=== PATIENT | male | born 1970 | race Two or more races ===

== ENCOUNTER 2024-10-14 16:55 | Emergency (ER) | payer MEDICAID, SELFPAY ==
[2024-10-14] VITALS (7 sets, daily range): BP systolic 123–129; BP diastolic 89–104; PULSE 93–120; RESP 19–22; TEMP 36.6–37; O2SAT 94–100; BMI 36.9
--- NOTE | 2024-10-14 17:20 | XR_ITS ---
Examination: AP chest single view Technique one AP portable upright chest single view Exam date and time: October 14, 2024 1755 hours INDICATIONS: Onset SOB today. FINDINGS: Mild heart failure Mild to moderate enlargement left ventricle Prominent vascular congestion with early septal edema at the lung bases Cardiac leads satisfactory position compared with February 16, 2021 IMPRESSION: Mild heart failure
--- NOTE | 2024-10-14 17:21 | PD.EDRME ---
Rapid Medical Screening Exam RME Arrival date/time: 10/14/24 16:55 Time Seen by Provider: 10/14/24 17:19 Vital signs: Vital Signs Temperature 98.6 F 10/14/24 17:00 Pulse Rate 113 H 10/14/24 17:00 Respiratory Rate 20 10/14/24 17:00 Blood Pressure 128/92 H 10/14/24 17:00 Pulse Oximetry (%) 94 L 10/14/24 17:00 Oxygen Delivery Method Room Air 10/14/24 17:00 RME Narrative: 54-year-old male with a history of meth induced dilated cardiomyopathy who presents with shortness of breath after running out of his Lasix for the last 3 days. He takes 40 mg twice a day for total of 80 mg in a 24-hour period. He denies chest pain. He denies cough fevers or sick contacts. On exam patient has a moderate respiratory distress, sitting upright. Focused encounter and examination was done to initiate the appropriate workup and treatment. Patient will be seen by the additional provider for more detailed and further management.
--- NOTE | 2024-10-14 17:37 | PD.EDADULT ---
ED General RME/HPI General Chief complaint: Shortness of Breath/Dyspnea Stated complaint: SOB Time Seen by Provider: 10/14/24 17:19 Arrival date/time: 10/14/24 16:55 CC: Shortness of breath onset after running out of his Lasix 3 to 4 days ago repeat the patient takes 40 mg twice a day. Patient denies any chest pain, has had intermittent cough but denies any fever chills nausea vomiting. 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 Affirms that he takes all of his medications as prescribed. Denies methamphetamine or illicit drug use. RME / HPI RME / HPI narrative: 54-year-old male with a history of meth induced dilated cardiomyopathy who presents with shortness of breath after running out of his Lasix for the last 3 days. He takes 40 mg twice a day for total of 80 mg in a 24-hour period. He denies chest pain. He denies cough fevers or sick contacts. On exam patient has a moderate respiratory distress, sitting upright. Focused encounter and examination was done to initiate the appropriate workup and treatment. Patient will be seen by the additional provider for more detailed and further management. Related Data Home Medications ?Medication ?Instructions ?Recorded ?Confirmed alogliptin 25 mg tablet 25 mg PO QDAY 02/03/20 02/14/21 atorvastatin 20 mg tablet 20 mg PO QDAY 02/03/20 02/14/21 metformin 1,000 mg tablet 1,000 mg PO BID 02/03/20 02/14/21 spironolactone 25 mg tablet 25 mg PO QDAY 08/10/20 02/14/21 hydroxyzine HCl 50 mg tablet 50 mg PO HS PRN Anxiety 10/28/20 02/14/21 apixaban 5 mg tablet (Eliquis) 5 mg PO BID 02/14/21 02/14/21 empagliflozin 25 mg tablet 25 mg PO DAILY 02/14/21 02/14/21 (Jardiance) escitalopram oxalate 10 mg tablet 10 mg PO QDAY 02/14/21 02/14/21 furosemide 40 mg tablet 40 mg PO DAILY 02/14/21 02/14/21 sacubitril 24 mg-valsartan 26 mg 1 tab PO BID 02/14/21 02/14/21 tablet (Entresto) Previous Rx's ?Medication ?Instructions ?Recorded folic acid 1 mg tablet 1 mg PO QDAY #30 tabs 08/12/20 hydrocodone 5 mg-acetaminophen 325 1 tab PO Q6H PRN pain #10 tabs 11/17/22 mg tablet ibuprofen 800 mg tablet 800 mg PO Q6H PRN pain #14 tabs 11/17/22 furosemide 40 mg tablet (Lasix) 40 mg PO BID #30 tabs 10/14/24 Allergies Allergy/AdvReac Type Severity Reaction Status Date / Time No Known Allergies Allergy Verified 10/14/24 17:28 Review of Systems Review of Systems Narrative Review of Systems: GEN: No fever, no chills, no weight loss EYES: No discharge, no visual changes, no pain HEENT: No ear pain, no congestion, no sore throat PULM: + shortness of breath, no cough, no congestion CV: No chest pain, no dyspnea on exertion, no palpitations GI: No nausea, no vomiting, no diarrhea, no pain, no constipation : No frequency, no urgency, no dysuria MUSC/SKEL: No joint pain, no back pain SKIN: No rash PSYCH: No hallucinations, no depression HEME/LYMPH: No easy bleeding or bruising tendencies NEURO: No weakness, no headache Past Medical History Past Medical History NEUROLOGIC: Positive Cerebrovascular Accident CARDIAC: Positive Cardiac Disorders, Hypercholesterolemia, Congestive Heart Failure, Congenital Heart Disease and Hypertension RESPIRATORY: Positive Asthma and Sleep Apnea; Negative Chronic Obstructive Pulmonary Disease (COPD) GASTROINTESTINAL: Positive Obesity; Negative Gastrointestinal Disorders GENITOURINARY: Negative Genitourinary Disorders or Renal Disease MUSCULOSKELETAL: Negative Musculoskeletal Disorders ENDOCRINE: Positive Endocrine Disorders and Diabetes Mellitus Type 2; Negative Diabetes Mellitus Type 1 HEMATOLOGIC: Negative Blood Disorders or Sickle Cell Disease OTHER HISTORY: Negative Autoimmune Disease or Cancer Family History FAMILY HISTORY: Positive Family Cardiac Disorders and Family Surgery; Negative Family Neurologic Problems, Family Psychiatric Problems, Family Respiratory Disorders, Family Gastrointestinal Problems, Family Cancer or Family Anesthesia Reaction Surgical History SURGICAL: Positive Pacemaker Social History SMOKING STATUS: Never smoker SECOND HAND EXPOSURE: No SUBSTANCE USE: methamphetamine ED Exam Narrative Physical exam: [General:not in any acute distress Head normocephalic HEENT: Within acceptable limits Neck is supple nontender Chest equal chest rise nontender to palpation Respiratory: Clear to auscultation no wheezes crackles or rubs CV: Rate rhythm is regular no murmurs rubs or clicks Abdomen is distended secondary to body habitus soft nontender no masses positive bowel sounds all 4 quadrants Back: No CVA tenderness no spinous process tenderness from cervical spine thoracic and lumbar spine Skin: Intact no petechiae rash induration ulceration or crepitus Extremities: Moving all extremity against resistance cap refill less than 2 seconds neurosensory intact. Minimal nonpitting edema both lower extremities Neuro: Awake alert oriented x3 Glascow coma 15 no focal deficits] Course Course Course Narrative: Patient voided approximately 400 mL and feels better . Patient be discharged home with a refill of his Lasix. Quality Measures none Orders Category Date Time Status EKG (ED ONLY) *Do not use* NOW Care 10/14/24 17:20 Completed EKG (ED Only) Stat Exams 10/14/24 17:20 Ordered XR chest 1V Stat Exams 10/14/24 17:20 Completed CBC Stat Lab 10/14/24 17:36 Completed CMP [Comprehensive Metabolic Panel] Stat Lab 10/14/24 17:36 Completed Troponin I Stat Lab 10/14/24 17:36 Completed Furosemide Inj [Lasix Inj] Med 10/14/24 20:03 Discontinued 40 mg IVP X1 ONE Furosemide Inj [Lasix Inj] Med 10/14/24 17:19 Discontinued 80 mg IVP X1 ONE Vital Signs Vital signs: Vital Signs Temperature 98.6 F 10/14/24 17:00 Pulse Rate 113 H 10/14/24 17:00 Respiratory Rate 20 10/14/24 17:00 Blood Pressure 128/92 H 10/14/24 17:00 Pulse Oximetry (%) 94 L 10/14/24 17:00 Oxygen Delivery Method Room Air 10/14/24 17:00 [facility] Patient data External records reviewed:: [facility] previous records Clinical information provided by:: patient Social determinants that could affect healthcare access:: none Patient has the following chronic illnesses:: Congestive heart failure secondary to polysubstance use How is presenting disease/condition affected by chronic disease/condition?: exacerbated by Evaluation data The following diagnostics were reviewed and interpreted by me:: lab results, radiology exam(s) and EKG tracing(s) Lab and/or radiology exams considered but not ordered:: EKG performed at 1906 shows ventricular to 119 PA interval 154 QRS of 121 QTc of 419 sinus tachycardia left axis deviation. Interpretation Summary: Fluid overload after running out of Lasix Medications Medications considered but not ordered:: None Medication administrations:: Medication Administration History Discontinued Medications Furosemide (Furosemide Inj 10 Mg/Ml 4ml Vial) 80 mg IVP X1 ONE Stop: 10/14/24 17:20 Last Admin: 10/14/24 17:38 Dose: 80 mg Documented By: AM Furosemide (Furosemide Inj 10 Mg/Ml 4ml Vial) 40 mg IVP X1 ONE Stop: 10/14/24 20:04 Last Admin: 10/14/24 20:17 Dose: 40 mg Documented By: TC None Consultations Consultation(s) initiated? (list below): No Diagnosis Differential Diagnosis ED Complaint MDM: [facility] [place] CHF Most likely diagnosis given after review of the tests above:: CHF exacerbation secondary to medication noncompliance Admission Indicated Admission indicated?: not indicated Explain why admission is indicated or not indicated:: Stable for outpatient follow-up Admission Request Was there a request for admission?: No Disposition Plan Disposition Plan: Discharge Discharge Attestation Discharge Attestation: The patient and all family members were given an opportunity to ask questions and understood the discharge instructions. Discharge instructions specifically effects, indications for sooner follow up or return to the emergency department, and the expected course of current diagnosis. Patient condition: Stable Medical Decision Making Differential Diagnosis Differential Diagnosis: [facility] [place] CHF Lab Data 10/14/24 17:36 10/14/24 17:36 Labs: Lab Results 10/14/24 Range/Units 17:36 WBC 7.7 (3.8-10.6) Thou/mm3 RBC 5.30 (4.50-5.90) Miln/mm3 Hgb 14.9 (13.5-16.0) g/dL Hct 45.6 (41.0-53.0) % MCV 86 (80-100) fL MCH 28.1 (25.0-35.0) pg MCHC 32.7 (31.0-37.0) g/dl RDW Std Deviation 51.0 H (35.1-43.9) fL Plt Count 191 (140-440) Thou/mm3 Neut % (Auto) 73 (37-80) % Lymph % (Auto) 12 (10-50) % [place] % (Auto) 11 (0-12) % Eos % (Auto) 2 (0-10) % Baso % (Auto) 1 (0-2.5) % Neut # (Auto) 5.6 (1.8-7.7) Thou/mm3 Lymph # (Auto) 0.9 L (1.0-4.8) Thou/mm3 [place] # (Auto) 0.9 H (0.0-0.8) Thou/mm3 Eos # (Auto) 0.2 (0.0-0.5) Thou/mm3 Baso # (Auto) 0.1 (0.0-0.2) Thou/mm3 Immature Gran # (Auto) 0.02 H (0.00-0.00) Thou/mm3 Absolute Nucleated RBC 0.00 (0.00-0.00) Thou/mm3 Immature Gran % 0 (0-0) % Nucleated RBC % 0 (0) /100 WBC Sodium 137 (136-145) mMol/L Potassium 3.9 (3.4-5.1) mMol/L Chloride 99 (98-107) mMol/L Carbon Dioxide 29.8 (20.0-31.0) mMol/L Anion Gap 8 (7-16) BUN 22 (9-23) mg/dL Creatinine 1.3 (0.6-1.3) mg/dL Estim Creat Clear Calc 82.5 (>60) mL/min eGFR > 60 (60 - ) See Note BUN/Creatinine Ratio 17 (12-20) Ratio Glucose 204 H (74-106) mg/dL Calculated Osmolality 283 (275-295) Calcium 9.7 (8.3-10.6) mg/dL Corrected Calcium 9.7 (8.5-10.1) mg/dL Total Bilirubin 2.9 H (0.3-1.2) mg/dL AST 22 (0-34) U/L ALT 18 (10-49) U/L Alkaline Phosphatase 156 H (46-116) U/L Troponin I 0.022 (0.0-0.045) ng/mL Total Protein 8.0 (5.7-8.2) gm/dL Albumin 4.4 (3.5-5.0) gm/dL Globulin 3.6 H (2.3-3.5) gm/dL Albumin/Globulin Ratio 1.2 (1.2-2.2) Discharge Plan Plan Patient Disposition: HOME (Self Care) Patient condition on transfer: Stable Prescriptions/Referrals Prescriptions/Med Rec: New furosemide [Lasix] 40 mg tablet 40 mg PO BID Qty: 30 1RF No Action atorvastatin 20 mg Tablet 20 mg PO QDAY metformin 1,000 mg Tablet 1,000 mg PO BID alogliptin 25 mg Tablet 25 mg PO QDAY hydroxyzine HCl 50 mg Tablet 50 mg PO HS PRN (Reason: Anxiety) spironolactone 25 mg Tablet 25 mg PO QDAY folic acid 1 mg Tablet 1 mg PO QDAY Qty: 30 0RF Eliquis 5 mg Tablet 5 mg PO BID Jardiance 25 mg Tablet 25 mg PO DAILY escitalopram oxalate 10 mg Tablet 10 mg PO QDAY furosemide 40 mg tablet 40 mg PO DAILY Entresto 24-26 mg Tablet 1 tab PO BID ibuprofen 800 mg tablet 800 mg PO Q6H PRN (Reason: pain) Qty: 14 0RF hydrocodone-acetaminophen 5-325 mg tablet 1 tab PO Q6H MDD 4 PRN (Reason: pain) Qty: 10 0RF Referrals: Zeferino Gaytan MD [Primary Care Provider] - In 1 week Problem List Clinical Impression: CHF (congestive heart failure) Patient/Caregiver Discharge Instructions Education Materials: Heart Failure Dc Additional Instructions: Take the medication as prescribed there is worsening of symptoms follow-up with your primary care doctor or return to the emergency room. Print Language: [place] Stand Alone Forms: Esthela Award Info., Patient Portal Info Letter, Work/School Release PA/EXPLOSIVE SPECIALIST Supervising Physician PA/EXPLOSIVE SPECIALIST Supervising Physician: Guillaume German ENP
[2024-10-14] MEDS: FUROSEMIDE INJ 10 MG/ML 4ML VIAL 80 MG IVP (17:38)
[2024-10-14 17:41] LABS: Basophils # (Auto) 0.1 Thou/mm3 (0.0-0.2); Basophils % (Auto) 1 % (0-2.5); Eosinophils # (Auto) 0.2 Thou/mm3 (0.0-0.5); Eosinophils % (Auto) 2 % (0-10); Hematocrit 45.6 % (41.0-53.0); Hemoglobin 14.9 g/dL (13.5-16.0); Immature Granulocytes % (Auto) 0 % (0-0); Immature Granulocytes Auto 0.02 Thou/mm3 (0.00-0.00); Lymphocytes # (Auto) 0.9 Thou/mm3 (1.0-4.8); Lymphocytes % (Auto) 12 % (10-50); Mean Corpuscular HGB Conc 32.7 g/dl (31.0-37.0); Mean Corpuscular Hemoglobin 28.1 pg (25.0-35.0); Mean Corpuscular Volume 86 fL (80-100); Monocytes # (Auto) 0.9 Thou/mm3 (0.0-0.8); Monocytes % (Auto) 11 % (0-12); Neutrophils # (Auto) 5.6 Thou/mm3 (1.8-7.7); Neutrophils % (Auto) 73 % (37-80); Nucleated Red Blood Cell % 0 /100 WBC (0); Platelet Count 191 Thou/mm3 (140-440); White Blood Count 7.7 Thou/mm3 (3.8-10.6)
[2024-10-14 18:00] LABS: Alanine Aminotransferase 18 U/L (10-49); Albumin, Serum 4.4 gm/dL (3.5-5.0); Albumin/Globulin Ratio 1.2 (1.2-2.2); Alkaline Phosphatase 156 U/L (46-116); Anion Gap 8 (7-16); Aspartate Amino Transferase 22 U/L (0-34); BUN/Creatinine Ratio 17 Ratio (12-20); Bilirubin,Total 2.9 mg/dL (0.3-1.2); Blood Urea Nitrogen 22 mg/dL (9-23); Calcium 9.7 mg/dL (8.3-10.6); Calcium (Corrected) 9.7 mg/dL (8.5-10.1); Carbon Dioxide 29.8 mMol/L (20.0-31.0); Chloride 99 mMol/L (98-107); Creatinine (Component) 1.3 mg/dL (0.6-1.3); Estimated Creatinine Clearance 82.5 mL/min (>60); Globulin 3.6 gm/dL (2.3-3.5); Glucose 204 mg/dL (74-106); Osmolality,Calculated 283 (275-295); Potassium 3.9 mMol/L (3.4-5.1); Sodium 137 mMol/L (136-145); Troponin I 0.022 ng/mL (0.0-0.045); eGFR > 60 See Note
[2024-10-14] MEDS: FUROSEMIDE INJ 10 MG/ML 4ML VIAL 40 MG IVP (20:17)
== END 2024-10-14 21:08 | disposition home or self-care (01) ==
PROVIDERS: Emergency Provider Emergency Medicine; PCP Family Medicine
DX: I11.0 Hypertensive heart disease with heart failure (principal); I50.9 Heart failure, unspecified; R00.0 Tachycardia, unspecified; E78.00 Pure hypercholesterolemia, unspecified; Z95.0 Presence of cardiac pacemaker; Z79.01 Long term (current) use of anticoagulants
CPT/HCPCS: 36415; 71045; 80053; 84484; 85025; 93005; 96374; 96376; 99284; J1940

== ENCOUNTER → 2025-03-27 | Outpatient (CLI) | payer MEDICAID, SELFPAY ==
[2025-03-27 12:01] LABS: Collection Type, Urine Clean Catch
[2025-03-27 12:13] LABS: Basophils # (Auto) 0.1 Thou/mm3 (0.0-0.2); Basophils % (Auto) 1 % (0-2.5); Eosinophils # (Auto) 0.2 Thou/mm3 (0.0-0.5); Eosinophils % (Auto) 4 % (0-10); Hematocrit 50.2 % (41.0-53.0); Hemoglobin 16.9 g/dL (13.5-16.0); Immature Granulocytes % (Auto) 0 % (0-0); Immature Granulocytes Auto 0.02 Thou/mm3 (0.00-0.00); Lymphocytes # (Auto) 1.1 Thou/mm3 (1.0-4.8); Lymphocytes % (Auto) 20 % (10-50); Mean Corpuscular HGB Conc 33.7 g/dl (31.0-37.0); Mean Corpuscular Hemoglobin 29.5 pg (25.0-35.0); Mean Corpuscular Volume 88 fL (80-100); Monocytes # (Auto) 0.7 Thou/mm3 (0.0-0.8); Monocytes % (Auto) 12 % (0-12); Neutrophils # (Auto) 3.5 Thou/mm3 (1.8-7.7); Neutrophils % (Auto) 63 % (37-80); Nucleated Red Blood Cell % 0 /100 WBC (0); Platelet Count 314 Thou/mm3 (140-440); RDW Standard Deviation 50.4 fL (35.1-43.9); Red Blood Count 5.73 Miln/mm3 (4.50-5.90); White Blood Count 5.6 Thou/mm3 (3.8-10.6)
[2025-03-27 12:23] LABS: Parathyroid Hormone Intact 34.4 pg/ml (18.5-88.0)
[2025-03-27 12:25] LABS: Creatinine MALB Rnd Ur 51 mg/dL (30-125); Microalbumin, Random Urine < 3 mg/L (0-300)
[2025-03-27 12:26] LABS: Alanine Aminotransferase 42 U/L (10-49); Albumin, Serum 4.6 gm/dL (3.5-5.0); Albumin/Globulin Ratio 1.3 (1.2-2.2); Alkaline Phosphatase 164 U/L (46-116); Anion Gap 5 (7-16); Aspartate Amino Transferase 34 U/L (0-34); BUN/Creatinine Ratio 21 Ratio (12-20); Bilirubin,Total 0.8 mg/dL (0.3-1.2); Blood Urea Nitrogen 21 mg/dL (9-23); Calcium 9.3 mg/dL (8.3-10.6); Calcium (Corrected) 9.3 mg/dL (8.5-10.1); Carbon Dioxide 31.6 mMol/L (20.0-31.0); Chloride 101 mMol/L (98-107); Globulin 3.6 gm/dL (2.3-3.5); Glucose 134 mg/dL (74-106); Osmolality,Calculated 280 (275-295); Potassium 4.5 mMol/L (3.4-5.1); Sodium 138 mMol/L (136-145); Total Protein 8.2 gm/dL (5.7-8.2); eGFR > 60 See Note
[2025-03-27 12:27] LABS: Vitamin D 25 Hydroxy Total 19.3 ng/mL (7.3-40.2)
[2025-03-27 12:36] LABS: Bilirubin,Urine Negative (Negative); Blood,Urine Negative (Negative); Clarity,Urine Clear (Clear/Hazy); Color,Urine Lt-Yellow (Lt Yel-Yel); Glucose, Urine 4+ (Negative); Ketones,Urine Negative (Negative); Leukocyte Esterase,Urine Negative (Negative); Nitrite,Urine Negative (Negative); PH,Urine 6.5 (5.0-7.0); Protein,Urine Negative (Neg - Trace); RBC,Urine 3 /hpf (0-3); Specific Gravity,Urine 1.029 (1.001-1.035); Squamous Epithelial Cell,Urine 1 /hpf (0-5); Urobilinogen,Urine Negative mg/dL (0.0-1.0); WBC,Urine 1 /hpf (0-5)
== END | disposition home or self-care (01) ==
LOC: COPL 11:16
PROVIDERS: PCP Internal Medicine; Referring Provider Internal Medicine; Visit Provider Internal Medicine
DX: I12.9 Hypertensive chronic kidney disease with stage 1 through stage 4 chronic kidney disease, or unspecified chronic kidney disease (principal); E11.22 Type 2 diabetes mellitus with diabetic chronic kidney disease; N18.30 Chronic kidney disease, stage 3 unspecified; E78.5 Hyperlipidemia, unspecified
CPT/HCPCS: 36415; 80053; 81001; 82043; 82306; 82570; 83970; 85025